=== PATIENT | female | born 1995 | race Caucasian/White ===

== ENCOUNTER 2023-09-14 19:26 | Inpatient (IN) | payer OTHER, SELFPAY ==
[2023-09-14 19:56] VITALS: BP 127/68; BMI 29.4
[2023-09-14 20:37] LABS: % Basophils 0.3 % (0-2); % Eosinophils 1.3 % (0-6); % Immature Granulocytes 0.7 % (0-0.5); % Lymphocytes 12.3 % (20.5-51.1); % Monocytes 6.9 % (1.7-9.3); % Neutrophils 78.5 % (42.2-75.2); Absolute Eosinophils 0.2 10^3/uL (0-0.7); Absolute Immature Granulocytes 0.1 10^3/uL (0-0.05); Absolute Lymphocytes 1.9 10^3/uL (1.2-3.4); Absolute Neutrophils 11.9 10^3/uL (1.4-6.5); Hematocrit 36.1 % (37.0-47.0); Hemoglobin 12.6 g/dL (12.0-16.0); Mean Corp Hgb Conc. 34.9 g/dL (33.0-37.0); Mean Corpuscular Hgb 30.9 pg (27.0-31.0); Mean Corpuscular Volume 88.5 fL (81.0-99.0); Mean Platelet Volume 11.8 fL (7.4-10.4); Nucleated Red Blood Cells % 0 %; Platelet Count 244 10^3/uL (130-400); Red Blood Cell Count 4.08 10^6/uL (4.20-5.40); Red Cell Dist. Width 12.6 % (11.5-14.5); White Blood Cell Count 15.2 10^3/uL (4.8-10.8)
[2023-09-14] MEDS: CYTOTEC 25 MICROGRAM VAG (21:14)
[2023-09-15] MEDS: LR 1000 IV ×3 (01:15→13:06)
[2023-09-15] MEDS: CYTOTEC 50 MICROGRAM PO (01:28)
[2023-09-15] MEDS: BRETHINE 250 MCG SC (01:50)
[2023-09-15] MEDS: PITOCIN 30 UNITS/NSS 500 ML IV ×2 (05:48→22:21)
[2023-09-15] MEDS: SUBLIMAZE 100 MCG EPIDURAL (12:49)
[2023-09-15] MEDS: FENTANYL/BUPIVACAINE 100 EPIDURAL (12:49)
[2023-09-15] MEDS: TYLENOL 650 MG PO (22:22)
[2023-09-16] MEDS: MOTRIN 600 MG PO ×3 (01:19→15:37)
[2023-09-16 05:15] LABS: Hemoglobin 11.3 g/dL (12.0-16.0)
[2023-09-16] MEDS: PRENATAL PLUS 1 TABLET PO (07:26)
[2023-09-16] MEDS: TYLENOL 650 MG PO ×2 (07:26→15:37)
[2023-09-17] MEDS: MOTRIN 600 MG PO (03:27)
[2023-09-17] MEDS: TYLENOL 650 MG PO (03:27)
[2023-09-17] MEDS: SENOKOT-S 1 TABLET PO (08:39)
[2023-09-17] MEDS: PRENATAL PLUS 1 TABLET PO (08:39)
[2023-09-20 14:27] LABS: Syphilis/T. pallidum Ab Reflex Negative (Negative)
== END 2023-09-17 10:50 | disposition home or self-care (01) | DRG 807 ==
LOC: LDRP 19:26
PROVIDERS: Obstetrics & Gynecology; ADMITTING PHYSICIAN Obstetrics & Gynecology
PROC: 3E0P7VZ Introduction of Hormone into Female Reproductive, Via Natural or Artificial Opening (ICD-10-PCS; 2023-09-14)
PROC: 10E0XZZ Delivery of Products of Conception, External Approach (ICD-10-PCS; 2023-09-15)
PROC: 0KQM0ZZ Repair Perineum Muscle, Open Approach (ICD-10-PCS; 2023-09-15)
PROC: 0UQMXZZ Repair Vulva, External Approach (ICD-10-PCS; 2023-09-15)
PROC: 10907ZC Drainage of Amniotic Fluid, Therapeutic from Products of Conception, Via Natural or Artificial Opening (ICD-10-PCS; 2023-09-15)
PROC: 3E033VJ Introduction of Other Hormone into Peripheral Vein, Percutaneous Approach (ICD-10-PCS; 2023-09-15)
DX: O48.0 Post-term pregnancy (principal); Z37.0 Single live birth; Z3A.40 40 weeks gestation of pregnancy; O70.1 Second degree perineal laceration during delivery; O99.52 Diseases of the respiratory system complicating childbirth; J45.909 Unspecified asthma, uncomplicated
CPT/HCPCS: 36415; 85014; 85018; 85025; 86780; 86850; 86900; 86901